=== PATIENT | female | born 1990 | race Caucasian/White ===

== ENCOUNTER 2022-10-20 10:31 | Emergency (ER) | payer OTHER, SELFPAY ==
[2022-10-20 10:43] VITALS: BP 120/72; PULSE 83; RESP 16; TEMP 36.7; O2SAT 99
--- NOTE | 2022-10-20 11:11 | ED.URI ---
HPI - URI/Sore Throat General Chief Complaint: Upper Respiratory Infection Stated Complaint: Sore Throat Source: patient and RN notes reviewed History of Present Illness HPI Narrative: 32-year-old female presents urgent care with 2 kids at side. Patient reports a sore throat. Patient has a son and daughter both tested positive for strep today. Denies any other symptoms including ear pain, fevers, chills, or vomiting. Some parts of this dictation were generated by voice recognition software and may contain typographical and/or grammatical inaccuracies. Related Data Home Medications Medication Instructions Recorded Confirmed sertraline 50 mg tablet mg 07/12/19 multivitamin (Daily Multi-Vitamin 1 tablet PO DAILY 07/27/19 tablet) Allergies Allergy/AdvReac Type Severity Reaction Status Date / Time No Known Allergies Allergy Unknown Verified 07/27/19 10:00 Review of Systems Review of Systems: CONSTITUTIONAL: Denies fever, chills, or sweats. EYES: Denies visual changes, redness, or discharge. ENT: sore throat CARDIOVASCULAR: Denies chest pain, palpitations, or edema. RESPIRATORY: Denies cough or dyspnea. GASTROINTESTINAL: Denies abdominal pain, nausea, vomiting, or diarrhea. GENITOURINARY: Denies dysuria or hematuria. SKIN: Denies rash or itching. MUSCULOSKELETAL: Denies back pain, joint pain, or myalgia. NEUROLOGIC: Denies headache, numbness, or weakness. PMFSH Surgical History Surgical History H/O tubal ligation Previous section Family History Family History Grandparent Family history of malignant neoplasm of male breast Social History Social History Smoking status: Never smoker Second hand tobacco smoke exposure: No Alcohol intake: never Comments At the time of my signature, I reviewed and agree with the nursing past medical, surgical, social, and family history. There is no relevant family history pertinent to the patient complaint. Exam Narrative: GENERAL: This is a well-nourished, well-developed patient, in no apparent distress. HEAD: normocephalic, atraumatic. EYES: PERRL. Sclera clear/white. Vision is grossly intact. EARS: External ears normal, auditory canals clear and without drainage, TMs normal without perforation. Hearing grossly intact. NOSE: External nose normal with no obvious nasal discharge, nares without redness, no rhinorrhea. THROAT: Mucous membranes moist, posterior pharynx clear. NECK: Neck supple, non-tender without lymphadenopathy, masses or thyromegaly. CARDIOVASCULAR: Regular rate and rhythm without murmurs, gallops, or rubs. RESPIRATORY: Clear to auscultation. Breath sounds equal bilaterally. No wheezes, rales, or rhonchi. GASTROINTESTINAL: Abdomen soft, non-tender, nondistended. Bowel sounds are active. No hepato-splenomegaly, or palpable masses. No guarding. SKIN: warm, intact with no suspicious lesions or rash, good texture and turgor. NEURO: awake, alert, and oriented to person, place and time. There were no obvious focal neurologic abnormalities. Course Course Level of Care: Express Care Visit Vital Signs Vital signs: Vital Signs Temperature 98.1 F 10/20/22 10:43 Pulse Rate 83 10/20/22 10:43 Respiratory Rate 16 10/20/22 10:43 Blood Pressure 120/72 10/20/22 10:43 Pulse Oximetry 99 10/20/22 10:43 Oxygen Delivery Room Air 10/20/22 10:43 Temperature 98.1 F 10/20/22 10:43 Pulse Rate 83 10/20/22 10:43 Respiratory Rate 16 10/20/22 10:43 Blood Pressure 120/72 10/20/22 10:43 Pulse Oximetry 99 10/20/22 10:43 Oxygen Delivery Room Air 10/20/22 10:43 Reviewed MDM - URI/Sore Throat MDM Narrative Medical decision making narrative: You are being treated for strep throat due to your symptoms and recent close exposure to strep throat. Increase your flu
== END 2022-10-20 11:20 | disposition home or self-care (01) ==
PROVIDERS: Emergency Provider Nurse Practitioner Family
DX: J02.9 Acute pharyngitis, unspecified (principal)
CPT/HCPCS: 87081; 87880; 99203; G0463

== ENCOUNTER 2022-11-17 08:07 | Emergency (ER) | payer OTHER, SELFPAY ==
[2022-11-17 08:23] VITALS: BP 117/73; PULSE 75; RESP 16; TEMP 36.9; O2SAT 100
--- NOTE | 2022-11-17 08:42 | ED.GENADULT ---
HPI - General Adult General Chief complaint: Upper Respiratory Infection Stated complaint: Sore Throat Source: patient Mode of arrival: ambulatory Limitations: no limitations History of Present Illness HPI narrative: Patient presents for evaluation of sick symptoms for last 5 days. Symptoms include sinus congestion, postnasal drainage, bilateral ear pain, throat irritation, fatigue, and shoulder/neck pain. No fever, chills, nausea, vomiting, cough. Her brother recently had strep. Her daughter is being evaluated here for sick symptoms as well. She had strep at the end of September 2022. She does not smoke. Related Data Home Medications Medication Instructions Recorded Confirmed sertraline 50 mg tablet 50 mg PO DAILY 07/12/19 bupropion HCl 150 mg 24 hr tablet, 150 mg PO DAILY 11/17/22 11/17/22 extended release Allergies Allergy/AdvReac Type Severity Reaction Status Date / Time No Known Allergies Allergy Unknown Verified 07/27/19 10:00 Review of Systems Review of Systems: CONSTITUTIONAL: Reports fatigue. Denies fever, chills, or sweats. EYES: Denies visual changes, redness, or discharge. ENT: Report sinus congestion, postnasal drainage, bilateral ear pain, throat irritation. CARDIOVASCULAR: Denies chest pain, palpitations, or edema. RESPIRATORY: Denies cough or dyspnea. GASTROINTESTINAL: Denies abdominal pain, nausea, vomiting, or diarrhea. GENITOURINARY: Denies dysuria or hematuria. SKIN: Denies rash or itching. MUSCULOSKELETAL: Reports bilateral shoulder pain and neck pain NEUROLOGIC: Reports headache. Denies numbness, dizziness, or weakness. PSYCHIATRIC: Denies anxiety or depression. [facility] Past Medical History Medical History Anxiety Depression Surgical History Surgical History H/O tubal ligation Previous section Family History Family History Grandparent Family history of malignant neoplasm of male breast Social History Social History Smoking status: Never smoker Second hand tobacco smoke exposure: No Alcohol intake: never Substance use: never Living arrangements: with family Gender identity (if verbalized by the patient): Female Sexual Orientation (if Verbalized by the Patient): Straight or Heterosexual Spiritual care concerns: No Exam Narrative: GENERAL: Well-appearing, well-nourished, and in no acute distress. HEAD: Normocephalic, atraumatic. EYES: PERRLA and EOMI. ENT: Nares clear, no rhinorrhea or epistaxis. Mucous membranes moist. Oropharynx without tonsillar hypertrophy exudate or other lesions. Bilateral TMs pearly weeks nonbulging NECK: Supple. No adenopathy or masses. No carotid bruits or JVD CHEST: Clear to auscultation. No respiratory distress. No wheezes rales or rhonchi HEART: Regular rate and rhythm. No murmur heard. Normal peripheral pulses. ABDOMEN: Soft, nontender, nondistended, normal active bowel sounds. EXTREMITIES: Normal range of motion. No edema. SKIN: Warm, dry, no rash. NEURO: No focal deficits. Alert and oriented x3. PSYCH: Normal mood and affect. Course Course Emergency Course: This is a 32-year-old female who presented for evaluation of sick symptoms after recent strep exposure. Strep negative and daughter's strep also negative. Likely viral infection. OTC meds for symptom management. Increase hydration. Follow up with primary provider. Go to the ER for worsening symptoms. Mother in agreement with plan of care. Level of Care: Express Care Visit Vital Signs Vital signs: Vital Signs Temperature 36.9 C 11/17/22 08:23 Pulse Rate 75 11/17/22 08:23 Respiratory Rate 16 11/17/22 08:23 Blood Pressure 117/73 11/17/22 08:23 Pulse Oximetry 100 11/17/22 08:23 Oxygen Delivery Room
== END 2022-11-17 09:01 | disposition home or self-care (01) ==
PROVIDERS: Emergency Provider Nurse Practitioner
DX: B34.9 Viral infection, unspecified (principal); F41.9 Anxiety disorder, unspecified; F32.A Depression, unspecified
CPT/HCPCS: 87081; 87880; 99213; G0463